=== PATIENT | female | born 1955 | race Caucasian/White ===

== ENCOUNTER 2023-07-22 08:05 | Outpatient (CLI) | payer MEDICARE, OTHER ==
--- NOTE | 2023-07-22 15:22 | CT Report ---
PROCEDURE: Abdomen/Pelvis WO INDICATIONS: LOW BACK PAIN TECHNIQUE: A CT scan of the abdomen and pelvis was performed without the use of intravenous contrast. Images we re recorded and evaluated at appropriate window settings. Reformats: coronal and sagittal. For radiat ion dose reduction, the following was used: automated exposure control, adjustment of mA and/or kV ac cording to patient size. COMPARISON: None. FINDINGS: Image quality: Diagnostic. Lower chest: Small to moderate-sized hiatal hernia. Liver: No contour-deforming mass. Hypodensity in the right lobe of the liver measuring 1 cm, (2/18). Gallbladder and biliary tree: No radiopaque stones or wall thickening. No biliary dilation. Spleen: No splenomegaly. Pancreas: No pancreatic ductal dilation. Adrenals: No adrenal nodule. Kidneys and ureters: No hydronephrosis. No kidney stones. No renal cystic lesion which requires follo w up. No solid mass. Stomach, bowel and peritoneum: No bowel distension. No pathologic free fluid. The appendix is within normal limits. Lymph nodes: No central or retroperitoneal adenopathy. Vessels: No infrarenal aortic aneurysm. PELVIS Reproductive organs: Anteverted uterus. Bladder: No stone. Pelvic lymph nodes: No pelvic adenopathy by size criteria. Bones: No aggressive osseous abnormality. Disc space height loss at L5-S1. Other: Tiny umbilical hernia. No inguinal hernia. IMPRESSION: 1. No kidney stones. No hydronephrosis. 2. No acute abnormality identified. No free fluid. 3. Hypodense focus in the right lobe of the liver is indeterminate. This could represent a small khloe ngioma or cyst. This can be further characterized with multiphase liver CT or MRI. 4. Small to moderate size hiatal hernia. Reviewed by: Jarett Arambula MD on 07/22/2023 3:20 PM PDT Approved by: Jarett Arambula MD on 07/22/2023 3:20 PM PDT Station ID: [id number]
== END 2023-07-22 08:06 | disposition home or self-care (01) ==
LOC: DI 08:05
PROVIDERS: ATTEND Family Medicine
DX: M54.50 Low back pain, unspecified (principal); K44.9 Diaphragmatic hernia without obstruction or gangrene; R93.2 Abnormal findings on diagnostic imaging of liver and biliary tract

== ENCOUNTER 2023-07-27 12:26 | Outpatient (CLI) | payer MEDICARE, OTHER ==
[2023-07-27] MEDS ORDERED: iohexoL-300 100 ML VIAL ONE (12:27)
[2023-07-27] MEDS: iohexoL-300 100 ML VIAL IVP ONE (14:42)
--- NOTE | 2023-07-27 15:55 | CT Report ---
PROCEDURE: Abdomen W/WO INDICATIONS: LIVER LESION CONTRAST: Omni 300 100ml TECHNIQUE: [address] scan of the liver was performed. Non-contrast and multiphasic contrast images were recorde d and evaluated at appropriate window settings. Reformats: coronal and sagittal. For radiation dose r eduction, the following was used: automated exposure control, adjustment of mA and/or kV according to patient size. COMPARISON: None. FINDINGS: Image quality: Diagnostic. Liver: Non-cirrhotic liver morphology. In segment 7, there is a 1 cm hypointense lesion with arterial enhancement. However, there is washout on the portal venous and delayed phase sequences (series 8, i mage 11 and series 20, image 11). OTHER: Lower chest: Large hiatal hernia. Gallbladder and biliary tree: No radiopaque stones or wall thickening. No biliary dilation. Spleen: No splenomegaly. Pancreas: No pancreatic ductal dilation. Adrenals: No adrenal nodule. Kidneys and ureters: No hydronephrosis. No renal cystic lesion which requires follow up. No solid mas s. Stomach, bowel and peritoneum: No bowel distension. No pathologic free fluid. Lymph nodes: No central or retroperitoneal adenopathy. Vessels: No infrarenal aortic aneurysm. Bones: No aggressive osseous abnormality. Other: No significant ventral hernia. IMPRESSION: 1 cm segment 7 lesion with arterial enhancement and washout on the delayed sequences. This washout fe ature is worrisome, and can be seen in the setting of hepatocellular carcinoma or metastatic disease. However, given a noncirrhotic liver morphology, findings likely remain a benign etiology such as an atypical hemangioma. Recommend 6 month follow-up to establish stability. Large hiatal hernia. Reviewed by: Valente Campbell MD on 07/27/2023 3:53 PM PDT Approved by: Valente Campbell MD on 07/27/2023 3:53 PM PDT Station ID: [id number]
== END 2023-07-27 12:27 | disposition home or self-care (01) ==
LOC: DI 12:26
PROVIDERS: ATTEND Family Medicine
DX: K76.9 Liver disease, unspecified (principal); K44.9 Diaphragmatic hernia without obstruction or gangrene
CPT/HCPCS: 74170; Q9967

== ENCOUNTER 2023-07-27 12:38 | Outpatient (CLI) | payer MEDICARE, OTHER ==
[2023-07-27 13:11] LABS: CREATININE 0.8 mg/dL (0.6-1.3)
== END 2023-07-27 12:39 | disposition home or self-care (01) ==
LOC: LAB 12:38
PROVIDERS: ATTEND Family Medicine
DX: K76.9 Liver disease, unspecified (principal)
CPT/HCPCS: 36415; 82565

== ENCOUNTER 2023-08-03 15:41 | Outpatient (CLI) | payer MEDICARE, OTHER ==
--- NOTE | 2023-08-04 00:56 | XRAY Report ---
PROCEDURE: Thoracic Spine 2V INDICATIONS: THORACIC BACK PAIN TECHNIQUE: 3 views of the thoracic spine were acquired. COMPARISON: None. FINDINGS: Bones: No fractures or dislocations. No suspicious bony lesions. 12 pairs of ribs are noted, and a ppear intact where visualized. Soft tissues: No paravertebral stripe thickening. IMPRESSION: No acute bony abnormality. No significant degenerative change. Reviewed by: Irene Sanches MD on 08/04/2023 12:54 AM PDT Approved by: Irene Sanches MD on 08/04/2023 12:54 AM PDT Station ID: [id number]
== END 2023-08-03 15:42 | disposition home or self-care (01) ==
LOC: DI.S 15:41
PROVIDERS: ATTEND Family Medicine
DX: M54.50 Low back pain, unspecified (principal); M54.6 Pain in thoracic spine

== ENCOUNTER 2023-08-17 09:27 | Outpatient (CLI) | payer MEDICARE, OTHER ==
--- NOTE | 2023-08-17 15:08 | MRI Report ---
PROCEDURE: Thoracic Spine WO INDICATIONS: THORACIC BACK PAIN TECHNIQUE: Noncontrast sagittal T1 spine echo and T2 fast spin echo, sagittal STIR, axial T1 and T2 fast spin ec ho through the thoracic spine. COMPARISON: Correlation is made with thoracic spine plain films, 08/03/2023. FINDINGS: Image quality: Excellent. Alignment and Curvature: There is normal bony alignment. Bone Marrow: Marrow is of normal overall signal. No acute vertebral body compression fractures. Spinal Cord: Visualized spinal cord is normal in size and signal. Paraspinous Soft Tissues: No paravertebral masses. Miscellaneous: Moderate disc space narrowing can be seen at the T6-T7 level. Along the left aspect of the spinal canal centered at T6-T7 level, there is abnormal soft tissue material seen, which is rela tively low signal on T2-weighted imaging and T1-weighted imaging. The abnormal soft tissue material m easures 1.4 cm craniocaudal and 1.8 cm AP, and can be seen on series 6 image 12 and on series 8 image 18. There is moderate central canal narrowing seen, with mass effect upon the thoracic cord, deviate d to the right. Age-appropriate degenerative changes can be seen elsewhere, with several levels of mild disc space na rrowing. IMPRESSION: Abnormal soft tissue material can be seen along the left aspect of the spinal canal at t he T6-T7 level. This is most likely related to a very large disc extrusion, although differential rima gnosis would also include a mass. - If clinically appropriate, please consider a follow-up right performed with IV contrast for further evaluation. Reviewed by: Moody Mclaughlin MD on 08/17/2023 2:07 PM DAYA Approved by: Moody Mclaughlin MD on 08/17/2023 2:07 PM DAYA Station ID: [id number]
== END 2023-08-17 09:28 | disposition home or self-care (01) ==
LOC: DI 09:27
PROVIDERS: ATTEND Family Medicine
DX: M47.814 Spondylosis without myelopathy or radiculopathy, thoracic region (principal); M79.9 Soft tissue disorder, unspecified; M48.04 Spinal stenosis, thoracic region

== ENCOUNTER 2023-08-18 16:30 | Outpatient (CLI) | payer MEDICARE, OTHER ==
[2023-08-18] MEDS ORDERED: GADOTERATE MEGLUMINE 7.5 MMOL/15 ML VIAL ONE (16:51)
[2023-08-18] MEDS: GADOTERATE MEGLUMINE 7.5 MMOL/15 ML VIAL IVP ONE (17:31)
--- NOTE | 2023-08-18 19:30 | MRI Report ---
PROCEDURE: Thoracic Spine W/WO INDICATIONS: THORACIC MASS CONTRAST: Clariscan 13.6 ml TECHNIQUE: Noncontrast sagittal T1 spin echo and T2 fast spin echo, sagittal STIR, axial T1 and T2 fast spin ech o through the thoracic spine. After the administration of contrast, axial and sagittal T1 spin echo with fat saturation through the thoracic spine. COMPARISON: Correlation is made with the noncontrast study performed 08/17/2023. FINDINGS: Image quality: Excellent. Alignment and curvature: There is normal bony alignment. Marrow: Marrow is of normal overall signal. No acute vertebral body compression fractures. Spinal cord: Visualized spinal cord is of normal signal and size, without abnormal enhancement. Paraspinous soft tissues: No paravertebral masses or abnormal enhancement. Miscellaneous: At the T6-T7 level on the left, there is again seen abnormal soft tissue. There is mo derate to prominent surrounding enhancement. The central portion of this does not enhance. IMPRESSION: The previously seen abnormal soft tissue on the left centered at the T6-T7 level demonstrates moderat e enhancement of its margins. This is most likely related to a disc extrusion with surrounding inflam matory change. Neoplasm is possible, yet considered to be less likely based upon these images. No additional abnormal areas of enhancement can be seen. Spine surgery consultation is recommended. Reviewed by: Moody Mclaughlin MD on 08/18/2023 6:29 PM DAYA Approved by: Moody Mclaughlin MD on 08/18/2023 6:29 PM DAYA Station ID: [id number]
== END 2023-08-18 16:31 | disposition home or self-care (01) ==
LOC: DI 16:30
PROVIDERS: ATTEND Family Medicine
DX: M48.8X4 Other specified spondylopathies, thoracic region (principal)